=== PATIENT | female | born 1945 | race Asian ===

== ENCOUNTER 2023-02-03 07:01 | Day surgery (SDC) | payer OTHER, BC ==
[2023-01-31 13:37] VITALS: BMI 24.6
[2023-02-03] MEDS ORDERED: PROPOFOL 120 ML ONE (07:36)
[2023-02-03 09:28] VITALS: RESP 20
[2023-02-03 09:57] VITALS: BP 100/73; PULSE 76; TEMP 97
== END 2023-02-03 09:35 | disposition home or self-care (01) ==
LOC: FASU-ENDO 07:01
PROVIDERS: ATTEND Internal Medicine Gastroenterology
PROC: 0DB68ZX Excision of Stomach, Via Natural or Artificial Opening Endoscopic, Diagnostic (ICD-10-PCS; 2023-02-03)
PROC: 0DB48ZX Excision of Esophagogastric Junction, Via Natural or Artificial Opening Endoscopic, Diagnostic (ICD-10-PCS; 2023-02-03)
PROC: 0DB98ZX Excision of Duodenum, Via Natural or Artificial Opening Endoscopic, Diagnostic (ICD-10-PCS; principal; 2023-02-03 08:39)
DX: D64.9 Anemia, unspecified (principal); K29.50 Unspecified chronic gastritis without bleeding; K20.90 Esophagitis, unspecified without bleeding
CPT/HCPCS: 88305-TC; 88342-TC